=== PATIENT | female | born 1990 | race Caucasian/White ===

== ENCOUNTER → 2022-04-06 10:56 | Outpatient (CLI) | payer OTHER, SELFPAY ==
[2022-04-06 14:01] LABS: Hematocrit 30.2 % (36-46); Hemoglobin 10.4 g/dL (12.0-16.0)
[2022-04-06 14:57] LABS: GTT (PREG) 1 Hour PP 50gm Dose 87 mg/dL (76-139)
== END ==
PROVIDERS: Referring Provider Obstetrics & Gynecology; Visit Provider Obstetrics & Gynecology
DX: Z34.83 Encounter for supervision of other normal pregnancy, third trimester (principal); Z3A.29 29 weeks gestation of pregnancy
CPT/HCPCS: 36415; 82950; 85014; 85018

== ENCOUNTER → 2022-04-29 | Outpatient (CLI) | payer OTHER, SELFPAY ==
--- NOTE | 2022-04-29 15:49 | DI.US.S_ITS ---
PROCEDURE: US OB LIMITED INDICATIONS: GROWTH - CARRIER FOR CF AND ALPHA THALASSEMIA OUTSIDE/PRIOR DATING DATA: The calculations are made using the provider supplied PIERCE of 06/19/2022. TECHNIQUE: Real-time scanning was performed of the fetus, with image documentation. Endovaginal scanning: Yes COMPARISON: None. FINDINGS: A single living intrauterine gestation is present. Presentation: Vertex. Placenta: Placental position is anterior, without previa. Amniotic fluid index: 10.5 cm, normal range is 5-24 cm. Single deepest vertical pocket is 4.2 cm. heart rate: 158 beats per minute. Maternal cervical canal: 3.6 cm long. Normal lower limit is 2.5 cm. Clinically estimated gestational age: 32 weeks 5 days Estimated weight is 2252 g, which is at the 71st percentile for gestational age Survey of anatomy currently includes normal stomach/abdomen, bilateral renal regions, and urinary bladder/pelvis. IMPRESSION: 1. Single living intrauterine gestation. 2. Abdominal circumference is at the 90th percentile for gestational age. 3. Overall appropriate growth. Dictated by: Brian Martinez M.D. on 05/19/2022 at 10:50 Approved by: Brian Martinez M.D. on 05/19/2022 at 10:53
== END ==
LOC: US 15:49
PROVIDERS: Referring Provider Obstetrics & Gynecology; Visit Provider Obstetrics & Gynecology
DX: Z36.89 Encounter for other specified antenatal screening (principal); O99.891 Other specified diseases and conditions complicating pregnancy; Z14.1 Cystic fibrosis carrier; Z14.8 Genetic carrier of other disease; Z3A.32 32 weeks gestation of pregnancy
CPT/HCPCS: 76815; 76817

== ENCOUNTER 2022-05-19 10:02 | Outpatient (CLI) | payer OTHER, SELFPAY | END 2022-05-19 10:35 | disposition home or self-care (01) | LOC: LABOR 10:20 → OB 05-20 10:02 | PROVIDERS: PCP Nurse Practitioner; Referring Provider Obstetrics & Gynecology; Visit Provider Obstetrics & Gynecology | DX: O43.893 Other placental disorders, third trimester (principal); O09.293 Supervision of pregnancy with other poor reproductive or obstetric history, third trimester; Z3A.35 35 weeks gestation of pregnancy | CPT/HCPCS: 59025; G0378; G0379 ==

== ENCOUNTER → 2022-05-26 09:18 | Outpatient (CLI) | payer OTHER, SELFPAY ==
[2022-05-27 11:45] LABS: Strep Grp B PCR NEG for Grp B Strep
== END ==
PROVIDERS: PCP Nurse Practitioner; Visit Provider Obstetrics & Gynecology
DX: Z34.83 Encounter for supervision of other normal pregnancy, third trimester (principal); Z3A.36 36 weeks gestation of pregnancy
CPT/HCPCS: 87653

== ENCOUNTER 2022-05-26 09:37 | Outpatient (CLI) | payer OTHER, SELFPAY | END 2022-05-26 11:31 | disposition home or self-care (01) | LOC: LABOR 10:43 → OB 05-28 13:52 | PROVIDERS: PCP Nurse Practitioner; Referring Provider Obstetrics & Gynecology; Visit Provider Obstetrics & Gynecology | DX: O60.03 Preterm labor without delivery, third trimester (principal); Z3A.36 36 weeks gestation of pregnancy; Z34.83 Encounter for supervision of other normal pregnancy, third trimester | CPT/HCPCS: 59025; 59050; 87653; G0378; G0379 ==

== ENCOUNTER 2022-05-30 09:04 | Outpatient (CLI) | payer OTHER, SELFPAY ==
--- NOTE | 2022-05-30 10:20 | PM.PROC.1 ---
Procedures Date/Time Date of procedure: 05/30/22 Time of procedure: 09:30 General Procedure description: 31YO @ [id number] under the care of Scheduled NST for COVID in 2nd trimester with grade II placenta RNST: baseline FHR variable, ended at 150bpm after 60 minutes of monitoring, moderate variability, accelerations present, decelerations absent. Discharged to home with routine precautions and routine care with continued weekly testing.
== END 2022-05-30 10:15 | disposition home or self-care (01) ==
LOC: LABOR 09:07 → OB 06-03 06:36
PROVIDERS: PCP Nurse Practitioner; Referring Provider Obstetrics & Gynecology; Visit Provider Obstetrics & Gynecology
DX: O44.23 Partial placenta previa NOS or without hemorrhage, third trimester (principal); Z3A.37 37 weeks gestation of pregnancy
CPT/HCPCS: 59025; G0378; G0379

== ENCOUNTER 2022-06-02 08:22 | Outpatient (CLI) | payer OTHER, SELFPAY | END 2022-06-02 09:15 | disposition home or self-care (01) | LOC: LABOR 09:51 → OB 06-03 06:37 | PROVIDERS: PCP Nurse Practitioner; Referring Provider Obstetrics & Gynecology; Visit Provider Obstetrics & Gynecology | DX: O43.893 Other placental disorders, third trimester (principal); O26.893 Other specified pregnancy related conditions, third trimester; Z3A.37 37 weeks gestation of pregnancy; Z86.16 Personal history of COVID-19 | CPT/HCPCS: 59025; G0378; G0379 ==

== ENCOUNTER 2022-06-09 12:21 | Outpatient (CLI) | payer OTHER, SELFPAY | END 2022-06-09 13:15 | disposition home or self-care (01) | LOC: OB 06-11 17:04 | PROVIDERS: PCP Nurse Practitioner; Referring Provider Obstetrics & Gynecology; Visit Provider Obstetrics & Gynecology | DX: O47.1 False labor at or after 37 completed weeks of gestation (principal); O43.893 Other placental disorders, third trimester; Z3A.38 38 weeks gestation of pregnancy | CPT/HCPCS: 59025; G0378; G0379 ==

== ENCOUNTER 2022-06-13 10:56 | Outpatient (CLI) | payer OTHER, SELFPAY ==
--- NOTE | 2022-06-13 11:33 | PM.PROC.1 ---
Procedures Date/Time Date of procedure: 06/13/22 Time of procedure: 11:33 General Procedure description: 31YO @ [id number] here for scheduled NST for COVID in 2nd trimester with grade II placenta. RNST: Baseline FHR 150bpm, moderate variability, accelerations present, rare mild variable present. Mild contrastions every 10 minutes, barely felt by patient. CE not indicated. Discharge to home with routine precautions. Continue bi-weekly testing until schedule IOL this week.
== END 2022-06-13 11:25 | disposition home or self-care (01) ==
LOC: OB 06-16 16:15
PROVIDERS: PCP Nurse Practitioner; Referring Provider Obstetrics & Gynecology; Visit Provider Obstetrics & Gynecology
DX: O43.893 Other placental disorders, third trimester (principal); O26.893 Other specified pregnancy related conditions, third trimester; Z86.16 Personal history of COVID-19; Z3A.39 39 weeks gestation of pregnancy
CPT/HCPCS: 59025; G0378; G0379

== ENCOUNTER 2022-06-14 19:02 | Inpatient (IN) | payer OTHER, SELFPAY ==
[2022-06-14 19:35] VITALS: BP 113/69
[2022-06-14 20:47] LABS: Add Manual Diff / Slide Review NO; Basophils Absolute Auto 0 /uL (0-100); Basophils Percent Auto 0.4 % (0-2); Eosinophils Absolute Auto 200 /uL (0-450); Eosinophils Percent Auto 1.7 % (2-4); Hematocrit 33.6 % (36-46); Hemoglobin 11.5 g/dL (12.0-16.0); Lymphocytes Absolute Auto 1800 /uL (1100-4500); Lymphocytes Percent Auto 19.6 % (25-40); Mean Corpuscular HGB Conc 34.1 % (30-36); Mean Corpuscular Hemoglobin 28.9 PG (26-34); Mean Corpuscular Volume 84.7 fL (80-100); Monocytes Absolute Auto 700 /uL (0-900); Neutrophils Absolute Auto 6400 /uL (1500-7000); Neutrophils Percent Auto 70.3 % (50-75); Platelet Count 280 X10^3/uL (150-400); Red Blood Cell Count 3.96 X10^6/uL (4.0-5.2); Red Cell Distribution Width 12.9 % (11.6-14.8); White Blood Cell Count 9.1 X10^3/uL (4.5-11.0)
--- NOTE | 2022-06-14 20:54 | PM.OBHP.IH.1 ---
OB HPI Date/Time Date of admission: 06/14/22 Date Patient Seen: 06/14/22 Time Patient Seen: 20:54 History of Present Condition Chief complaint: labor PIERCE Calculator Estimated Delivery Date Method Current WG Current Estimate 06/19/22 LMP (Certain) 39w 2d Estimated Gestational Age (weeks): 39+2 : 3 Para: 0 care: good care, initiated at week # (9), number of visits (12) and pounds weight gain (32) Dating criteria OB: LMP confirmed by 1st trimester US Ultrasounds: normal 1st trimester US and normal mid trimester US Obstetrical complications: other (cf carrier, alpha thalassemia) Indications Indication for induction OB: other (placenta grade 3) Preadmission Labs Last OB Lab Results: Blood Type Pending 06/14/22 19:40 Antibody Screen Pending 06/14/22 19:40 Hematocrit 33.6 % (36-46) L 06/14/22 19:40 Hemoglobin 11.5 g/dL (12.0-16.0) L 06/14/22 19:40 Glucose 1 Hour 87 mg/dL (76-139) 04/06/22 11:10 Group B Streptococcus (PCR) Neg for grp b strep 05/26/22 09:18 -: Chlamydia screen: negative, Gonorrhea screen: negative and Urine: negative -: PAP smear: Normal Genetic Screens: Quad screen: Normal External Labs -: Urine: negative Prior (ies) Past Pregnancies Del. Date GA/Weeks Labor Lgth Wt Sex Route Outcome Anesthesia Place Delv Breastfeed Preg Comp Name 03/02/21 5-6 ectopic 06/30/21 5-6 spontaneous Delivery Date: 03/02/21 Last Updated by: Marsha Mcclain RN resolved w/ methotrexate, no complications Delivery Date: 06/30/21 Last Updated by: Marsha Mcclain RN passed spontaneously, no complications Evaluation Evaluation Baseline heart rate: 135 Variability: Moderate (11-25) monitor accelerations: Present Monitor Decelerations: Absent Contraction Frequency (minutes): 8 Uterine Contraction Intensity: Mild Status: Category l Dilation (cm): 1 Effacement (%): 85 Dilation: 1-2 cm Effacement: >/=80% station: 0 Position of cervix: posterior Consistency: soft Garcia score: 8 [facility] Medical History Anxiety (~2014) Chicken pox Ectopic (~2020) Hemorrhoid (~2020) Miscarriage (~2021) Plantar warts (~2020) Recurrent UTI Surgical History Anesthesia H/O urethrotomy (~1997) [place] teeth extracted (~2009) Family History Grandmother Diabetes mellitus Grandmother Breast cancer Social History marital status: number of children: 0 household members: spouse lives independently: Yes caregiver/support person: No housing: condominium ([facility]) pets and animals: Yes (2 cats, 1 dog; aware of toxo precautions) education level: college (rylie's degree) occupational status: employed (works from home, runs [employer]) current occupational exposures/hazards: No special zachery needs: No travel history: recent (domestic only) seatbelt use: always helmet use: Yes water heater temp set < 120 deg: Yes working smoke detector in home: Yes fire extinguisher in home: Yes carbon monox detector in home: Yes firearms in home: Yes firearms unloaded and locked: Yes do you feel safe at home: Yes Smoking Status: Never smoker second hand exposure: No alcohol intake: former (rarely when not ) substance use type: does not use during the past year weight has: remained stable well-balanced diet: daily or most days (vegetarian including dairy/eggs) daily servings fruits/ve or more times/day caffeine: No (1 cup/day when not ) Type(s) of exercise: aerobic Meds Home Medications and Allergies Home Medications Medication Instructions Recorded Confirmed Type aspirin 81 mg tablet,delayed 81 mg PO DAILY 04/01/22 06/09/22 History release prenat.vits,mary,[id number] 1 tab PO DAILY 04/01/22 06/14/22 History ferrous sulfate 47.5 mg PO DAILY 05/17/22 06/14/22 History Allergies Allergy/AdvReac Type Severity Reaction Status Date / Time Penicillins Allergy Mild Rash Verified 06/14/22 19:38 OB Exam Narrative Exam Narrative: Generally: Patient is sitting up in bed, no acute distress Lungs: Clear to auscultation bilaterally Cardiovascular: Regular rate and rhythm Fundal height: 38 cm Estimated weight: 7 lb Extremities: No edema Objective Labs 06/14/22 19:40 Labs: Laboratory Results - last 24 hr 06/14/22 19:40 WBC 9.1 RBC 3.96 L Hgb 11.5 L Hct 33.6 L MCV 84.7 MCH 28.9 MCHC 34.1 RDW 12.9 Plt Count 280 Neut % (Auto) 70.3 Lymph % (Auto) 19.6 L Mcdowell % (Auto) 8.0 Eos % (Auto) 1.7 L Baso % (Auto) 0.4 Neut # (Auto) 6400 Lymph # (Auto) 1800 Mcdowell # (Auto) 700 Eos # (Auto) 200 Baso # (Auto) 0 Assessment and Plan Assessment and Plan Assessment and Plan narrative: Assessment: 31-year-old 3 para 2 at 39-,2/7 weeks gestation with a grade 3 placenta for cervical ripening/induction of labor Plan: Cervidil Will assess cervix in the morning for next step Time Spent with Patient Total time spent with greater than 50% in coordination of care (as documented) at patient's floor/unit and/or counseling patient:: 15-24 minutes
[2022-06-14] MEDS: DINOPROSTONE VAG (CERVIDIL) 10 MG VAG (21:02)
[2022-06-15] MEDS: ZOLPIDEM 5 MG TABLET PO (01:40)
[2022-06-15] MEDS: LACTATED RINGERS 1,000 ML 100 ML IV (07:49)
[2022-06-15] MEDS: OXYTOCIN PREMIX 30 UNIT/500 ML PLAST..BAG IV (07:50)
--- NOTE | 2022-06-15 07:55 | PM.OBPNLAB ---
Date/Time Date Patient Seen: 06/15/22 Time Patient Seen: 07:55 Pain Control Pain control: tolerating well Pelvic Exam Dilation (cm): 1 Effacement (%): 85 station: 0 Amniotic membrane status: Intact Contractions Monitor mode: External Contraction frequency (min): 4 Contraction duration (min): 1 Contraction pattern: Regular Contraction intensity: Mild Status status: Category l Heart Rate Baseline: 125 Monitor Accelerations: Present Monitor Decelerations: Absent Monitor Variability: Moderate Assessment and Plan Assessment: induction ongoing Comments: Begin Pitocin Epidural as needed
--- NOTE | 2022-06-15 13:43 | P.PCNOB_ITS ---
Events: Labor Induction Labor & Delivery Delivery date: 06/15/22 Cervical ripening method: per Cervidil protocol Induction method: per pitocin protocol Delivery monitor: external FHT and external uterine Route of delivery: Episiotomy description: None L&D Laceration Description: Perineal - 2nd Degree, Vaginal - 2nd Degree and Labial (bilateral) Delivery repair: vicryl and chromic Quantitative Blood Loss: 450 Anesthesia Type: Local (for repair) Complications: None Narrative: Patient complete and pushed for 1-1/2 hours. At 12:04 p.m., the delivered in the direct OA presentation, over an intact perineum. The remainder of the body delivered without difficulty and was placed on mom's abdomen. There was thick meconium-stained amniotic fluid. After the cord stopped pulsing, the cord was double clamped and cut. Cord bloods were obtained. The placenta delivered intact with a three-vessel cord at 12:10 p.m.. A second-degree perineal/vaginal laceration was repaired in the usual fashion. First-degree bilateral labial lacerations were repaired in the usual fashion. QBL 450 cc. Apgars 9 at 1 minute and 9 at 5 minutes. weight 6 lb 14.5 oz. Breastfee ding. Local analgesia only for repair. Mom and stable to recovery. [place] Baby 1: Infant gender: Female Presentation: vertex Position: Right Occiput Anterior Placenta delivery description: Spontaneous Cord Vessel Description: 3 Vessels and Clamped/Cut (After cord stopped pulsing) score (1 min): 9 score (5 min): 9 weight: 6 lb 14.5 oz Plan for aftercare: Routine care
[2022-06-16 06:02] LABS: Hematocrit 28.3 % (36-46); Hemoglobin 9.6 g/dL (12.0-16.0)
[2022-06-16 12:40] VITALS: BP 91/65; PULSE 72; RESP 17; TEMP 36.5
--- NOTE | 2022-06-27 14:58 | PM.OBDS.1 ---
Discharge Providers Provider Date of admission: 06/14/22 19:02 Discharge Date: 06/16/22 Primary care physician: KASSIDY Knott Consults: 06/14/22 20:37 Consult to Anesthesiology Urgent Comment: Consulting Provider: Rufina Bender Reason for consultation: Epidural 06/16/22 13:40 Consult to Thaw Shed Heater Tender Routine Comment: Discharge provider: Rufina Bender MD Summary Hospital Course Date Patient Seen: 06/16/22 Time Patient Seen: 07:45 Diagnoses: 39-2/7 weeks gestation Grade 3 placenta Cervical ripening with Cervidil Spontaneous vaginal delivery Thick meconium-stained amniotic fluid Spontaneous vaginal delivery Second-degree perineal/vaginal laceration Bilateral labial laceration Nuchal cord x1, foot cord x1 Hospital Course: Patient is a 31-year-old 3 para 1 who presented on June 14, 2022 for cervical ripening with Cervidil due to a grade 3 placenta. She received 1 dose of Cervidil. On the morning of June 15, 2022 she was 1 cm/85%/0 station. Pitocin augmentation was started. She progressed to complete dilation very quickly. She pushed for 1-1/2 hours and had a spontaneous vaginal delivery without complication. There was thick meconium-stained amniotic fluid. Her course was unremarkable. She was discharged home on June 16, 2022. Bleeding was tapering. was going well. She was ambulating without assistance. Peripartum Data Infant Delivery Method: Natural Vaginal Laceration Description: Perineal - 2nd Degree, Vaginal - 2nd Degree and Labial (bilateral ) Episiotomy description: None Procedures: Cervidil cervical ripening Pitocin augmentation of labor Spontaneous vaginal delivery complications: none 1: Gender: Female Disposition of : home Status at Discharge Cognitive/behavioral status at discharge: oriented Functional status at discharge: independent ambulation Overall status at discharge: patient is progressing back to baseline Time Spent with Patient Time attestation: Total time spent providing and/or coordinating discharge services: Time spent: Less than 30 minutes Objective Labs 06/16/22 05:24 Exam Narrative Exam Narrative: Generally: Patient is sitting up in bed, holding infant, no acute distress Fundus: Firm at U -2 Extremities: No edema, negative Homans Discharge Plan Discharge Plan Patient Disposition: Home Provider Discharge Comment: Call with fever, chills, or bleeding vaginally more than a pad in an hour Tylenol 650 mg every 6 hours as needed Ibuprofen 600 mg every 6 hours as needed Stool softeners as needed Push oral fluids Discharge orders & Medications Prescriptions: Continued ferrous sulfate 47.5 mg iron tablet extended release 47.5 mg PO DAILY prenat.vits,mary,[id number] Tablet 1 tab PO DAILY Follow up/Referrals: Rufina Bender MD [Physician] - 6 Weeks (Please follow up with Dr. Birmingham on July 28 @ 11:00AM check-in time. Please call the clinic or cetner reguarding any questions prior to your appt. ) Diet/Activity/Treatments Diet: Regular Activity: Nothing in the vagina for 6 weeks No lunging or squatting Skin/Wound/Dressing Care Report to your healthcare provider any signs of infection, such as:: chills, fever, increased pain and unusual drainage Visit Report/Discharge Packet Instructions: DI for Labor and Delivery, Vaginal Stand Alone Forms: Discharge: Care, Patient Portal/API, Stroke Signs & Symptoms Discharge Data Primary Care Provider: Emilie Hassan
== END 2022-06-16 14:35 | disposition home or self-care (01) | DRG 806 ==
PROVIDERS: Admitting Provider Obstetrics & Gynecology; PCP Nurse Practitioner; Referring Provider Obstetrics & Gynecology; Visit Provider Obstetrics & Gynecology
DX: O36.5130 Maternal care for known or suspected placental insufficiency, third trimester, not applicable or unspecified (principal); O99.12 Other diseases of the blood and blood-forming organs and certain disorders involving the immune mechanism complicating childbirth; D56.0 Alpha thalassemia; Z37.0 Single live birth; O70.1 Second degree perineal laceration during delivery; O70.0 First degree perineal laceration during delivery; O99.892 Other specified diseases and conditions complicating childbirth; Z14.1 Cystic fibrosis carrier; Z3A.39 39 weeks gestation of pregnancy; O69.81X0 Labor and delivery complicated by cord around neck, without compression, not applicable or unspecified
CPT/HCPCS: 36415; 59050; 59200; 59410; 85014; 85018; 85025; 86850; 86900; 86901; G0379; J2590

== ENCOUNTER → 2023-08-30 15:36 | Outpatient (CLI) | payer OTHER, SELFPAY ==
[2023-08-30 22:46] LABS: Urine N gonorrhoeae NOT DETECTED
[2023-08-30 23:06] LABS: Urine Chlamydia NOT DETECTED
== END ==
PROVIDERS: PCP Nurse Practitioner; Visit Provider Obstetrics & Gynecology
DX: Z34.01 Encounter for supervision of normal first pregnancy, first trimester (principal)
CPT/HCPCS: 87491; 87591

== ENCOUNTER → 2023-09-05 08:31 | Outpatient (CLI) | payer OTHER, SELFPAY ==
[2023-09-05 09:32] LABS: Add Manual Diff / Slide Review NO; Basophils Absolute Auto 0 /uL (0-100); Basophils Percent Auto 0.6 % (0-2); Eosinophils Absolute Auto 100 /uL (0-450); Eosinophils Percent Auto 1.6 % (2-4); Hematocrit 37.3 % (36-46); Hemoglobin 12.7 g/dL (12.0-16.0); Lymphocytes Absolute Auto 1600 /uL (1100-4500); Lymphocytes Percent Auto 23.1 % (25-40); Mean Corpuscular HGB Conc 34.1 % (30-36); Mean Corpuscular Hemoglobin 28.6 PG (26-34); Mean Corpuscular Volume 83.9 fL (80-100); Monocytes Absolute Auto 500 /uL (0-900); Monocytes Percent Auto 6.9 % (3-14); Neutrophils Absolute Auto 4600 /uL (1500-7000); Neutrophils Percent Auto 67.8 % (50-75); Platelet Count 318 X10^3/uL (150-400); Red Blood Cell Count 4.44 X10^6/uL (4.0-5.2); Red Cell Distribution Width 12.5 % (11.6-14.8); White Blood Cell Count 6.9 X10^3/uL (4.5-11.0)
[2023-09-05 09:44] LABS: Natera Collection Specimen Collected
[2023-09-05 18:04] LABS: HIV 1 & 2 Ab/Ag 4th Gen Combo NEGATIVE (NEGATIVE); Hep C Virus Ab w/Reflex Quant NEGATIVE s/c (NEGATIVE); Hepatitis B Surface Antigen NEGATIVE s/c (NEGATIVE); Rubella Antibody IgG 14.9 IU/mL (>15)
[2023-09-06 06:11] LABS: RPR Screen Non Reactive (Non Reactive)
[2023-09-06 09:29] LABS: Varicella IgG Antibody 784 index (Immune >165)
== END ==
LOC: LAB 08:32
PROVIDERS: PCP Nurse Practitioner; Referring Provider Obstetrics & Gynecology; Visit Provider Obstetrics & Gynecology
DX: Z34.81 Encounter for supervision of other normal pregnancy, first trimester (principal); Z34.80 Encounter for supervision of other normal pregnancy, unspecified trimester; Z3A.10 10 weeks gestation of pregnancy
CPT/HCPCS: 36415; 80055; 86787; 86803; 86850; 86900; 86901; 87086; 87389

== ENCOUNTER → 2023-11-14 15:34 | Outpatient (CLI) | payer OTHER, SELFPAY ==
--- NOTE | 2023-11-14 15:35 | DI.US.S_ITS ---
PROCEDURE: US OB >= 14 WEEKS FETUS INDICATIONS: anatomy scan OUTSIDE/PRIOR DATING DATA: Last menstrual period (LMP): 06/25/2023 LMP-based estimated date of delivery (PIERCE): 03/31/2024 First dating scan (date and location): Not available Estimated date of delivery (PIERCE) from first dating scan: Not available The calculations are made using the working PIERCE of 03/31/2024 TECHNIQUE: Real-time scanning was performed of the fetus, with image documentation and biometric measurements. Endovaginal scanning: Not indicated COMPARISON: [facility], , OB >= 14 WEEKS FETUS, 06/09/2022, 14:22. FINDINGS: General: A single living intrauterine gestation is present. Presentation: Transverse with head towards maternal left side. Placenta: Placental position is posterior, without previa. Amniotic fluid index: 13.4 cm, normal range is 5-24 cm. Single deepest vertical pocket is 3.6 cm. heart rate: 139 beats per minute. Maternal cervical canal: 4.5 cm long. Normal lower limit is 2.5 cm. biometrics: Biparietal diameter: 4.8 cm, 20 weeks, 4 days. Head circumference: 17.5 cm, 20 weeks, 0 day. Abdominal circumference: 15.2 cm, 20 weeks, 3 days Femur length: 3.3 cm, 20 weeks, 1 day Clinically estimated gestational age: 20 weeks, 2 days Composite gestational age from present scan: 20 weeks, 2 days Estimated weight and percentile: 346 g, 47% Anatomic survey: Neuro: Ventricles are non-dilated at less than 10 mm. Cisterna magna is normal at 3-11 mm. Cerebellum is normal in size and morphology. Nuchal skin fold: Normal at less than 6 mm between 14-21 weeks gestational age. Face: Nose and lips, facial profile are normal. Spine: No evidence for spina bifida. Heart: 4-chambered heart is present, with normal ventricular outflow tracts. Diaphragm: Diaphragm is intact. Stomach: Left-sided stomach is present. Kidneys: There is no left-sided hydronephrosis. Prominence of right renal pelvis is seen measures 5.1 cm in diameter. Normal is less than 5 mm in 2nd trimester, less than 7 mm in 3rd trimester. Cord: 3-vessel cord has orthotopic insertion. Bladder: Normal in size. Extremities: All 4 extremities identified. IMPRESSION: 1. Single live intrauterine gestation with fetus in transverse presentation. heart rate is 139 beats per minute. Cervix is closed and measures 4.5 cm in length. 2. Normal JASON at 13.4 cm. Estimated weight is 47%. 3. Mild dilatation of right renal pelvis. Rest of the anatomic survey is normal. We strive to produce accurate, complete, and clear reports of imaging services. To assist us in improving patient care, this report was composed using standard report templates and voice recognition software. Therefore, it may contain abnormal punctuation, insertions and/or omissions. Occasional wrong-word or sound-alike substitutions may occur. Though we review the report and make efforts to correct it, we do recommend that the report be read carefully in proper context to recognize any text inaccuracies. Dictated by: Filiberto Reilly M.D. on 11/20/2023 at 10:18 Approved by: Filiberto Reilly M.D. on 11/20/2023 at 10:21
[2023-11-16 20:36] LABS: Gest Age on Col Date 20.3 weeks (.); Gestational Age EDD (.); Insulin Dep Diabetes No (.); OSBR Risk 1IN 10000 (.); Results Report (.); Test Results *Screen Negative* (.)
[2023-11-17 09:17] LABS: PDF SCANNED
== END ==
LOC: US 15:34
PROVIDERS: PCP Nurse Practitioner; Referring Provider Obstetrics & Gynecology; Visit Provider Obstetrics & Gynecology
DX: Z34.02 Encounter for supervision of normal first pregnancy, second trimester (principal); Z3A.20 20 weeks gestation of pregnancy
CPT/HCPCS: 36415; 76811; 82105

== ENCOUNTER → 2023-12-21 11:26 | Outpatient (CLI) | payer OTHER, SELFPAY ==
[2023-12-21 14:47] LABS: Hematocrit 35.4 % (36-46); Hemoglobin 12.2 g/dL (12.0-16.0)
[2023-12-21 15:23] LABS: GTT (PREG) 1 Hour PP 50gm Dose 121 mg/dL (76-139)
== END ==
PROVIDERS: PCP Nurse Practitioner; Referring Provider Obstetrics & Gynecology; Visit Provider Obstetrics & Gynecology
DX: Z34.82 Encounter for supervision of other normal pregnancy, second trimester (principal); Z3A.26 26 weeks gestation of pregnancy
CPT/HCPCS: 36415; 82950; 85014; 85018

== ENCOUNTER → 2024-02-13 11:49 | Outpatient (CLI) | payer OTHER, SELFPAY ==
--- NOTE | 2024-02-13 12:15 | DI.US.S_ITS ---
PROCEDURE: US OB FOLLOW UP INDICATIONS: follow up R renal pelvis OUTSIDE/PRIOR DATING DATA: Last menstrual period (LMP): 06/25/2023. LMP-based estimated date of delivery (PIERCE): 03/31/2024. The calculations are made using the clinical PIERCE of 03/31/2024. TECHNIQUE: Real-time scanning was performed of the fetus, with image documentation. Endovaginal scanning: Not performed COMPARISON: [facility], , OB >= 14 WEEKS FETUS, 11/14/2023, 16:28. FINDINGS: General: A single living intrauterine gestation is present. Presentation: Vertex. Placenta: Placental position is posterior, without previa. Amniotic fluid index: 14 cm, normal range is 5-24 cm. Single deepest vertical pocket is 4.6 cm. heart rate: 147 beats per minute. Maternal cervical canal: 3.2 cm long. Normal lower limit is 2.5 cm. Clinically estimated gestational age: 33 weeks 2 days No gross abnormality. Bilateral kidneys are within normal limits. Right renal pelvis measures 4 mm. Left renal pelvis measures 2 mm. IMPRESSION: 1. Rawls living intrauterine at 33 weeks 2 days based on prior dating. 2. Normal placenta and amniotic fluid. 3. Normal kidneys. We strive to produce accurate, complete, and clear reports of imaging services. To assist us in improving patient care, this report was composed using standard report templates and voice recognition software. Therefore, it may contain abnormal punctuation, insertions and/or omissions. Occasional wrong-word or sound-alike substitutions may occur. Though we review the report and make efforts to correct it, we do recommend that the report be read carefully in proper context to recognize any text inaccuracies. Dictated by: Alec Gan M.D. on 02/13/2024 at 23:28 Approved by: Alec Gan M.D. on 02/13/2024 at 23:30
== END ==
LOC: US 11:49
PROVIDERS: PCP Nurse Practitioner; Referring Provider Obstetrics & Gynecology; Visit Provider Obstetrics & Gynecology
DX: Z36.2 Encounter for other antenatal screening follow-up; Z3A.33 33 weeks gestation of pregnancy
CPT/HCPCS: 76816

== ENCOUNTER → 2024-03-09 11:45 | Outpatient (CLI) | payer OTHER, SELFPAY ==
[2024-03-10 11:09] LABS: Strep Grp B PCR NEG for Grp B Strep
== END ==
PROVIDERS: PCP Family Medicine; Visit Provider Obstetrics & Gynecology
DX: Z34.83 Encounter for supervision of other normal pregnancy, third trimester (principal); Z3A.36 36 weeks gestation of pregnancy
CPT/HCPCS: 87653

== ENCOUNTER 2024-04-03 07:02 | Inpatient (IN) | payer OTHER, SELFPAY ==
[2024-04-03 07:45] VITALS: BP 120/80
[2024-04-03 08:50] LABS: Add Manual Diff / Slide Review NO; Basophils Absolute Auto 0 /uL (0-100); Basophils Percent Auto 0.2 % (0-2); Eosinophils Absolute Auto 0 /uL (0-450); Eosinophils Percent Auto 0.1 % (2-4); Hematocrit 37.3 % (36-46); Hemoglobin 12.6 g/dL (12.0-16.0); Lymphocytes Absolute Auto 1100 /uL (1100-4500); Lymphocytes Percent Auto 10.3 % (25-40); Mean Corpuscular HGB Conc 33.7 % (30-36); Mean Corpuscular Volume 86.1 fL (80-100); Monocytes Absolute Auto 500 /uL (0-900); Monocytes Percent Auto 5.2 % (3-14); Neutrophils Absolute Auto 8800 /uL (1500-7000); Neutrophils Percent Auto 84.2 % (50-75); Platelet Count 217 X10^3/uL (150-400); Red Blood Cell Count 4.33 X10^6/uL (4.0-5.2); Red Cell Distribution Width 12.3 % (11.6-14.8); White Blood Cell Count 10.4 X10^3/uL (4.5-11.0)
--- NOTE | 2024-04-03 11:30 | P.HPOB_ITS ---
OB HPI Date/Time Date of admission: 04/03/24 Date Patient Seen: 04/03/24 Time Patient Seen: 11:30 History of Present Condition Chief complaint: contractions PIERCE Calculator 2 Estimated Delivery Date Method Current WG Current Estimate 03/31/24 LMP (Certain) 40w 3d Other Estimates 03/31/24 Ultrasound #1 40w 3d : 4 Para: 1 Narrative: 33yo at 40w3d d=9wk US presents to L&D with c/o labor, onset of painful contractions since 0130 this AM. Initial SVE on arrival /, verbal instructions given for admission, CBC/T&S, intermittent monitoring. Patient has been OOB and ambulating, states contractions have remained regular, coping well with supportive measures. +FM, denies VB, LOF, dysuria. course uncomplicated, PMHx notable for historical anemia without recurrence in current , rubella equivocal/non-immune. care: none Dating criteria OB: LMP confirmed by 1st trimester US Ultrasounds: normal 1st trimester US and normal mid trimester US Obstetrical complications: none Medical complications OB: none Preadmission Labs Last OB Lab Results: 2 Blood Type A Positive 04/03/24 08:00 Antibody Screen Negative 04/03/24 08:00 Hct 37.3 % (36-46) 04/03/24 08:00 Hgb 12.6 g/dL (12.0-16.0) 04/03/24 08:00 Hep Bs Antigen Negative s/c (NEGATIVE) 09/05/23 08:44 Hepatitis C Antibody Negative s/c (NEGATIVE) 09/05/23 08:44 Rubella Antibody 14.9 IU/mL (>15) L 09/05/23 08:44 VZV IgG Antibody 784 index (Immune >165) 09/05/23 08:44 Glucose 1 Hr 50 gm 121 mg/dL (76-139) 12/21/23 13:33 Group B Strep (PCR) Neg for grp b strep 03/09/24 11:45 -: Chlamydia screen: negative, Gonorrhea screen: negative and Urine: negative -: PAP smear: Normal Genetic Screens: Cell-free DNA: Normal (low-risk, surprise gender) External Labs -: Urine: negative Prior (ies) Past Pregnancies Del. Date GA/Weeks Labor Lgth Wt Sex Route Outcome Anesthesia Place Delv Breastfeed Preg Comp Name 03/02/21 5-6 ectopic 06/30/21 5-6 spontaneous 06/15/22 39.3 14 6 lb 14 oz Female vacuum vaginal live - full term none IH Still going as of 08/09/23 other [place] Delivery Date: 03/02/21 Last Updated by: Marsha Mcclain RN resolved w/ methotrexate, no complications Delivery Date: 06/30/21 Last Updated by: Marsha Mcclain RN passed spontaneously, no complications Delivery Date: 06/15/22 Last Updated by: Marsha Mcclain RN Covid during ->placental calcifications Hx # Term Pregnancies: 1 Spontaneous abortions: 1 Ectopic pregnancies: 1 Evaluation Evaluation Baseline heart rate: 140 Variability: Average (6-10) monitor accelerations: Present Monitor Decelerations: Absent Contraction Frequency (minutes): 4 Uterine Contraction Intensity: Moderate Category of Tracing: Reactive Status: Category l Dilation (cm): 5 Effacement (%): 90 Dilation: >/=5 cm Effacement: >/=80% station: -1 Position of cervix: mid Consistency: soft Garcia score: 11 [facility] Medical History (Updated 01/25/24 @ 13:37 by Darvin Tompkins MD) Hypotension Pain of breast during Anxiety (~2014) Vaginal delivery (~06/15/22) Placental abnormality (~2021) COVID-19 affecting in second trimester (~2021) Plantar warts (~2020) Miscarriage (~2021) Hemorrhoid (~2020) Chicken pox Ectopic (~2020) Recurrent UTI Surgical History Anesthesia [place] teeth extracted (~2009) H/O urethrotomy (~1997) Family History Grandmother Diabetes mellitus Grandmother Breast cancer Social History marital status: number of children: 1 household members: spouse lives independently: Yes caregiver/support person: Yes housing: [facility] ([facility]) pets and animals: Yes (2 cats, 1 dog; aware of toxo precautions) education level: college (rylie's degree) occupational status: employed (works from home, runs [employer]) current occupational exposures/hazards: No special zachery needs: No travel history: recent (domestic only) seatbelt use: always helmet use: Yes water heater temp set < 120 deg: Yes working smoke detector in home: Yes fire extinguisher in home: Yes carbon monox detector in home: Yes firearms in home: Yes firearms unloaded and locked: Yes do you feel safe at home: Yes Smoking Status: Never smoker second hand exposure: No alcohol intake: former (rarely when not ) substance use type: does not use during the past year weight has: other (back to pre-baby weight) well-balanced diet: daily or most days daily servings fruits/ve or more times/day caffeine: No (not while ) Type(s) of exercise: walking and yoga Meds Home Medications and Allergies Home Medications Medication Instructions Recorded Confirmed Type ferrous sulfate 140 mg (45 mg 140 mg PO DAILY Slightly anemic 08/09/23 03/26/24 History iron) tablet,extended release (Slow Release Iron) vitamin-ferrous sulfate tab PO DAILY 08/09/23 03/26/24 History 27 mg iron-folic acid 0.8 mg tablet ketoconazole 2 % topical cream 1 applic topical DAILY #15 grams 09/27/23 03/26/24 Rx Allergies Allergy/AdvReac Type Severity Reaction Status Date / Time Penicillins Allergy Mild Rash Verified 03/26/24 14:52 Review of Systems Review of Systems ROS: Yes All systems reviewed with the patient and are negative except as otherwise documented OB Exam Vital signs Blood Pressure: 123/80 Pulse Rate: 101 Resp Effort & Inspection: normal respiratory effort Extremities Lower extremity: Yes normal to inspection GI Inspection: normal to inspection Other: gravid, justin cephalic 7# External Female Exam: Yes normal external appearance Bimanual Exam- Vagina & Uterus: normal bimanual exam Presentation: vertex Objective Labs 04/03/24 08:00 Labs: Laboratory Results - last 24 hr 04/03/24 08:00 WBC 10.4 RBC 4.33 Hgb 12.6 Hct 37.3 MCV 86.1 MCH 29.0 MCHC 33.7 RDW 12.3 Plt Count 217 Neut % (Auto) 84.2 H Lymph % (Auto) 10.3 L [place] % (Auto) 5.2 Eos % (Auto) 0.1 L Baso % (Auto) 0.2 Neut # (Auto) 8800 H Lymph # (Auto) 1100 [place] # (Auto) 500 Eos # (Auto) 0 Baso # (Auto) 0 Blood Type A Positive Antibody Screen Negative Assessment and Plan Assessment and Plan Assessment and Plan narrative: 33yo at 40w3d d=9wk US presents in term labor Term labor Planned unmedicated labor, coping well with supportive measures, encouraged to continue ambulation/position changes Plan interval SVE 4-6h, sooner PRN; AROM at that time if no further cervical dilation Cat 1 tracing, ok for intermittent monitoring PNL: A+, ab screen neg, rubella equivocal, GBS neg, remainder wnl; pt aware of need for MMR Patient is consented for vaginal, vaginal operative and delivery as well as transfusion of blood products as medically indicated Anticipate Time-Based Coding :: [TOTAL MINUTES] spent with patient and on the chart (including review of chart, obtaining history, exam, reviewing outside data, placing orders, documenting exam and treatment plan, and counseling patient) on [DATE].
[2024-04-03 11:38] VITALS: BP 123/80; PULSE 101
[2024-04-03] MEDS: LIDOCAINE 1% 20 ML INJ (14:30)
[2024-04-03] MEDS: TRANEXAMIC ACID 1,000 MG in SODIUM CHLORIDE 0.9% 100 ML 600 MG IV (14:35)
[2024-04-03] MEDS: OXYTOCIN PREMIX 30 UNIT/500 ML PLAST..BAG 200 UNIT IV (14:40)
--- NOTE | 2024-04-03 15:27 | P.PCNOB_ITS ---
Labor & Delivery Delivery date: 04/03/24 Delivery Time: 14:23 Intrapartal Events: None Cervical ripening method: none Induction method: none Delivery monitor: external FHT Route of delivery: L&D Laceration Description: Perineal - 1st Degree Delivery repair: vicryl Estimated blood loss (mL): 200 Anesthesia Type: None Complications: none Narrative: Pt reported urge to push, SVE per RN C/C/+2, SROM with immediate descent to +3. Patient in dorsal lithotomy position. Over the next 3 contractions with excellent maternal expulsive efforts head delivered in straight OA position with restitution to maternal right. Anterior shoulder delivered with gentle downwards traction in tandem with McRobert's however no full shoulder impaction. Posterior shoulder and body delivered without difficulty, vigorous and placed on maternal abdomen. Delayed cord clamping x90 seconds. Cord clamped x2 and cut by FOB, 3VC noted. Placenta delivered with gentle downward traction, inspected and noted to be intact. Fundus palpated and firm but with noted persistent brisk bleeding. Pitocin administered in addition to 1g TXA with subsequent improvement, sterile straight cath with minimal UOP. Perineal exam revealed a shallow second degree in line with prior scar, repaired with 2-0 vicryl in running fashion. Fundus again palpated and noted to be firm. All counts correct x2 [place] Baby 1: Infant gender: Female Presentation: vertex Position: Right Occiput Anterior Placenta delivery description: Spontaneous Cord Vessel Description: 3 Vessels score (1 min): 9 score (5 min): 9 Plan for aftercare: Routine care
--- NOTE | 2024-04-04 07:44 | P.DS_ITS ---
History of Present Illness History of Present Illness Date Patient Seen: 04/04/24 Time Patient Seen: 07:44 Chief complaint: contractions Narrative: 33yo PPD1 s/p , doing well Discharge Providers Provider Date of admission: 04/03/24 07:02 Discharge Date: 04/04/24 Primary care physician: Kenneth Atkinson DO Consults: 04/03/24 08:40 Consult to Anesthesiology Urgent Comment: Consulting Provider: Anesthesiologist Reason for consultation: Epidural Has provider been notified: No 04/04/24 14:49 Consult to Front End Specialist Routine Comment: Discharge provider: Erica Saba MD Summary Hospital Course Discharge Diagnosis: s/p Hospital Course: 33yo at 40w3d d=9wk US admitted in early latent labor. course uncomplicated, GBS negative. Patient made spontaneous progression to active labor without augmentation, brief second stage (approx 15min) with delivery of vigorous LBFI. 2nd degree perineal laceration repaired in standard fashion, brisk bleeding following placental delivery without uterine atony managed with IV TXA with appropriate response. Patient had an uncomplicated course, exclusively without difficulty, requested expedited discharge to home today on PPD1. Status at Discharge Cognitive/behavioral status at discharge: oriented Functional status at discharge: independent ambulation Overall status at discharge: patient is back to baseline Time Spent with Patient Time spent: Less than 30 minutes Exam Vital Signs (past 8 hours): maternal VS reviewed in OBIX and wnl Const General: cooperative, healthy appearing and comfortable Nutritional Appearance: average body habitus Orientation: alert, awake and oriented x3 Resp Effort & Inspection: normal respiratory effort and able to speak in complete sentences Cardio Rate: regular rate Pulses: normal peripheral pulses GI Inspection: normal to inspection Palpation: soft Other: fundus firm << Umb, non-tender Other: deferred Skin General: no rashes or lesions noted Neuro General: patient alert, patient awake and patient oriented x3 Extrem General: normal to inspection Psych Mental Status: mental status grossly normal Judgment: judgment good Objective Labs 04/03/24 08:00 Labs: Laboratory Results - last 24 hr 04/03/24 08:00 WBC 10.4 RBC 4.33 Hgb 12.6 Hct 37.3 MCV 86.1 MCH 29.0 MCHC 33.7 RDW 12.3 Plt Count 217 Neut % (Auto) 84.2 H Lymph % (Auto) 10.3 L [place] % (Auto) 5.2 Eos % (Auto) 0.1 L Baso % (Auto) 0.2 Neut # (Auto) 8800 H Lymph # (Auto) 1100 [place] # (Auto) 500 Eos # (Auto) 0 Baso # (Auto) 0 Blood Type A Positive Antibody Screen Negative [facility] Medical History (Updated 01/25/24 @ 13:37 by Darvin Tompkins MD) Hypotension Pain of breast during Anxiety (~2014) Vaginal delivery (~06/15/22) Placental abnormality (~2021) COVID-19 affecting in second trimester (~2021) Plantar warts (~2020) Miscarriage (~2021) Hemorrhoid (~2020) Chicken pox Ectopic (~2020) Recurrent UTI Surgical History Anesthesia [place] teeth extracted (~2009) H/O urethrotomy (~1997) Family History Grandmother Diabetes mellitus Grandmother Breast cancer Social History marital status: number of children: 1 household members: spouse lives independently: Yes caregiver/support person: Yes housing: [facility] ([facility]) pets and animals: Yes (2 cats, 1 dog; aware of toxo precautions) education level: college (rylie's degree) occupational status: employed (works from home, runs [employer]) current occupational exposures/hazards: No special zachery needs: No travel history: recent (domestic only) seatbelt use: always helmet use: Yes water heater temp set < 120 deg: Yes working smoke detector in home: Yes fire extinguisher in home: Yes carbon monox detector in home: Yes firearms in home: Yes firearms unloaded and locked: Yes do you feel safe at home: Yes Smoking Status: Never smoker second hand exposure: No alcohol intake: former (rarely when not ) substance use type: does not use during the past year weight has: other (back to pre-baby weight) well-balanced diet: daily or most days daily servings fruits/ve or more times/day caffeine: No (not while ) Type(s) of exercise: walking and yoga Discharge Assessment & Plan Assessment and Plan Assessment: 33yo PPD1 s/p of LBFI, doing Plan of Treatment: Discharge to home pt declines contraception, counseled on risk of escape ovulation, readdress at visit breast feeding exclusively, support PRN routine precautions routine f/u in office 4-6wks Discharge Plan Discharge Plan Patient Disposition: Home Provider Discharge Comment: Nothing in the vagina for 4 weeks. No tampons, intercourse, douching, swimming in fresh water/pools/hot tubs. Tub baths are okay if the tub is cleaned well first. Discharge orders & Medications Prescriptions: New acetaminophen 325 mg Tablet 650 mg PO Q6HR PRN (Reason: Pain, Mild (1-3)) Qty: 30 0RF Dermoplast (with menthol) 20-0.5 % Aerosol 1 spray topical Q1HR PRN (Reason: perineal pain) Qty: 56 2RF ibuprofen 600 mg Tablet 600 mg PO Q6HR PRN (Reason: Pain, Mild (1-3)) Qty: 60 0RF Purelan Cream 1 applic topical PRN PRN (Reason: Tenderness) Qty: 7 3RF Continued Slow Release Iron 140 mg (45 mg iron) tablet extended release 140 mg PO DAILY vit-ferrous sulfat-FA 27 mg iron- 0.8 mg tablet PO DAILY ketoconazole 2 % cream 1 applic topical DAILY Qty: 15 0RF Follow up/Referrals: Kenneth Atkinson DO [Primary Care Provider] - Diet/Activity/Treatments Diet: Regular Skin/Wound/Dressing Care Report to your healthcare provider any signs of infection, such as:: night sweats and increased pain Visit Report/Discharge Packet Stand Alone Forms: Patient Portal/API, Stroke Signs & Symptoms Discharge Data Primary Care Provider: Kenneth Atkinson
[2024-04-04 10:23] VITALS: BP 97/65; PULSE 85; RESP 15; TEMP 36.8
[2024-04-04] MEDS: WITCH HAZEL/GLYCERIN PADS 1 EACH TOP (10:38)
[2024-04-04] MEDS: MEASLES,MUMPS,RUBELLA VACC/PF 0.5 ML VIAL SUBCUT (10:38)
[2024-04-04] MEDS: DERMOPLAST SPRAY 20% 60 ML 1 SPRAY TOP (10:39)
== END 2024-04-04 12:20 | disposition home or self-care (01) | DRG 807 ==
PROVIDERS: Admitting Provider Obstetrics & Gynecology; PCP Family Medicine; Referring Provider Obstetrics & Gynecology; Visit Provider Obstetrics & Gynecology
DX: O70.1 Second degree perineal laceration during delivery (principal); Z37.0 Single live birth; Z3A.40 40 weeks gestation of pregnancy
CPT/HCPCS: 36415; 59050; 59400; 85025; 86850; 86900; 86901; G0379; J2590